=== PATIENT | female | born 1955 | race Caucasian/White ===

== ENCOUNTER 2021-01-22 06:28 | Day surgery (SDC) | payer MEDICARE ==
[2021-01-20 12:28] VITALS: BMI 30.9
[~2021-01-22 06:28] MED LIST: LACTATED RINGERS 1,000 ML IV SCH
[2021-01-22] MEDS ORDERED: LIDOCAINE 1% (10MG/ML) FOR IV START INTRADERMA ONE (07:04)
[2021-01-22 07:05] VITALS: TEMP 97.5
[2021-01-22 07:07] LABS: Glucose,Whole Blood 115 mg/dL (75-99)
[2021-01-22] MEDS ORDERED: PROPOFOL 10 MG/ML 20 ML VIAL IV ONE (07:17)
--- NOTE | 2021-01-22 07:34 | P.PCN ---
Date of Procedure: 01/22/21 Procedure(s) Performed: BRIEF HISTORY: Patient is a 65-year-old pleasant white female scheduled for an elective colonoscopy as a part of screening for colon cancer PROCEDURE PERFORMED: Colonoscopy. PREOPERATIVE DIAGNOSIS: Screening for colon cancer. IV sedation per Anesthesia. PROCEDURE: After informed consent was obtained, the patient, was brought into the endoscopy unit. IV sedation was administered by Anesthesia under continuous monitoring. Digital rectal examination was normal. Initially the Olympus CF-160 flexible video colonoscope was then inserted in the rectum, gradually advanced into the cecum without any difficulty. Careful examination was performed as the scope was gradually being withdrawn. Ileocecal valve and the appendiceal orifice were visualized and appeared normal. Prep was excellent. Mucosa of the cecum, ascending colon, transverse colon, descending colon, sigmoid colon, and rectum appeared normal. Retroflexion was performed in the rectum and no lesions were seen. The patient tolerated the procedure well. IMPRESSION: Normal-appearing colon from rectum to cecum no evidence of colorectal neoplasia . RECOMMENDATIONS: Findings of this examination were discussed with the patient as well as a family. She was advised to have a repeat screening colonoscopy in 10 years..
[2021-01-22 07:38] VITALS: RESP 16
[2021-01-22 07:56] VITALS: BP 140/88; PULSE 67
== END 2021-01-22 08:18 | disposition home or self-care (01) ==
LOC: ORWHC2ENDO 06:28
PROVIDERS: ATTEND Internal Medicine Gastroenterology
DX: Z12.11 Encounter for screening for malignant neoplasm of colon (principal); E78.5 Hyperlipidemia, unspecified; E11.9 Type 2 diabetes mellitus without complications; F17.210 Nicotine dependence, cigarettes, uncomplicated; Z79.84 Long term (current) use of oral hypoglycemic drugs; Z79.899 Other long term (current) drug therapy
CPT/HCPCS: J2704; G0121

== ENCOUNTER → 2023-07-19 | Outpatient (CLI) | payer MEDICARE ==
--- NOTE | 2023-07-19 19:40 | XR ---
EXAMINATION TYPE: XR abdomen 2V DATE OF EXAM: 07/19/2023 COMPARISON: None INDICATION: Left lower quadrant pain TECHNIQUE: Single view abdomen supine and upright views FINDINGS: Normal bowel gas is present. No mass effect is evident. Psoas margins are normal. No organomegaly is present. No free air is evident. No suspicious differential air-fluid levels are evident. IMPRESSION: 1. Unremarkable Abdomen
== END | disposition home or self-care (01) ==
LOC: RADXRMAIN 15:43
PROVIDERS: ATTEND Nurse Practitioner Family
DX: R10.32 Left lower quadrant pain (principal)
CPT/HCPCS: 74019

== ENCOUNTER 2023-09-10 10:08 | Emergency (ER) | payer MEDICARE ==
[2023-09-10 10:12] VITALS: TEMP 97.2
[2023-09-10] MEDS: SODIUM CHLORIDE 0.9% 1,000 ML IV STA (10:58)
[2023-09-10 11:05] LABS: Basophils # (A) 0.1 k/uL (0-0.2); Basophils % (A) 1 %; Eosinophils # (A) 0.2 k/uL (0-0.7); Eosinophils % (A) 2 %; HCT 45.1 % (34.0-46.0); HGB 14.6 gm/dL (11.4-16.0); Lymphocytes # (A) 2.4 k/uL (1.0-4.8); Lymphocytes % (A) 22 %; MCH 28.1 pg (25.0-35.0); MCHC 32.3 g/dL (31.0-37.0); Mean Platelet Volume 8.2; Monocytes # (A) 0.6 k/uL (0-1.0); Monocytes % (A) 5 %; Neutrophils # (A) 7.8 k/uL (1.3-7.7); Neutrophils % (A) 69 %; Platelet Count 264 k/uL (150-450); RBC 5.19 m/uL (3.80-5.40); RDW 13.7 % (11.5-15.5); WBC 11.2 k/uL (3.8-10.6)
[2023-09-10 11:10] LABS: Appearance,Urine Clear (Clear); Bacteria,Urine Rare /hpf; Bilirubin,Urine Negative (Negative); Blood,Urine Trace (Negative); Color,Urine Colorless; Glucose,Urine (UA) 4+ (Negative); Ketones,Urine Negative (Negative); Leukocyte Esterase,Urine Negative (Negative); Nitrite,Urine Negative (Negative); PH, Urine 6.5 (5.0-8.0); Protein,Urine Negative (Negative); RBC,Urine 1 /hpf (0-5); Squamous Epithelial Cell,Urine 1 /hpf (0-4); Urobilinogen,Urine <2.0 mg/dL (<2.0); WBC,Urine 1 /hpf (0-5)
[2023-09-10 11:39] LABS: ALT 19 U/L (4-34); African American GFR (CKD) >90 (>60 ml/min/1.73 sqM); Albumin 4.3 g/dL (3.5-5.0); Anion Gap 5 mmol/L; Blood Urea Nitrogen 17 mg/dL (7-17); Calcium 9.6 mg/dL (8.4-10.2); Carbon Dioxide 27 mmol/L (22-30); Chloride 106 mmol/L (98-107); Glucose 121 mg/dL (74-99); Lipase 35 U/L (23-300); Non-African American GFR(CKD) >90 (>60 ml/min/1.73 sqM); Sodium 138 mmol/L (137-145); Total Bilirubin 0.7 mg/dL (0.2-1.3)
[2023-09-10 11:52] LABS: AST 33 U/L (14-36); Alkaline Phosphatase 65 U/L (38-126); Potassium 4.6 mmol/L (3.5-5.1)
--- NOTE | 2023-09-10 11:52 | ED ---
Back Pain HPI - General Chief Complaint: Back Pain/Injury Stated Complaint: Backside pain Time Seen by Provider: 09/10/23 10:25 Source: patient, RN notes reviewed Limitations: no limitations - History of Present Illness Initial Comments: 67-year-old female presents emergency fronting with left-sided pain. Patient states she has had abdominal pain never resolves getting getting worse. Patient did initially see PCP when this started an x-ray which showed no acute process. Patient states that she was having diarrhea but they thought this was from her metformin she has been switched to Jardiance. Patient denies any fevers or chills no chest pain no dysuria no rectal bleeding. - Related Data Home Medications Medication Instructions Recorded Confirmed Atorvastatin [Lipitor] 20 mg PO HS 01/20/21 01/20/21 Desmopressin Intranasal [Ddavp 10 mcg NASAL DAILY PRN 01/20/21 01/20/21 Nasal Theresa] metFORMIN HCL [Glucophage] 500 mg PO BID 01/20/21 01/20/21 Previous Rx's Medication Instructions Recorded Cyclobenzaprine [Flexeril] 10 mg PO TID PRN #15 tab 09/10/23 Ketorolac [Toradol] 10 mg PO Q8HR #15 tab 09/10/23 Allergies Allergy/AdvReac Type Severity Reaction Status Date / Time No Known Allergies Allergy Verified 01/20/21 12:23 Review of Systems ROS Statement: Those systems with pertinent positive or pertinent negative responses have been documented in the HPI. ROS Other: All systems not noted in ROS Statement are negative. 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 History of Any Multi-Drug Resistant Organisms: None Reported Past Surgical History: Appendectomy Additional Past Surgical History / Comment(s): COLONOSCOPY Past Anesthesia/Blood Transfusion Reactions: No Reported Reaction Past Psychological History: No Psychological Hx Reported Smoking Status: Current every day smoker Past Alcohol Use History: None Reported Past Drug Use History: None Reported - Past Family History Mother Family Medical History: No Reported History General Exam Limitations: no limitations General appearance: alert, in no apparent distress Head exam: Present: atraumatic, normocephalic, normal inspection Eye exam: Present: normal appearance, PERRL, EOMI. Absent: scleral icterus, conjunctival injection, periorbital swelling ENT exam: Present: normal exam, mucous membranes moist Neck exam: Present: normal inspection, full ROM. Absent: tenderness, meningismus, lymphadenopathy Respiratory exam: Present: normal lung sounds bilaterally. Absent: respiratory distress, wheezes, rales, rhonchi, stridor Cardiovascular Exam: Present: regular rate, normal rhythm, normal heart sounds. Absent: systolic murmur, diastolic murmur, rubs, gallop, clicks GI/Abdominal exam: Present: soft, tenderness, normal bowel sounds. Absent: distended, guarding, rebound, rigid Course Vital Signs 09/10/23 09/10/23 10:09 13:16 Temperature 97.2 F L Pulse Rate 101 H 79 Respiratory 18 16 Rate Blood Pressure 175/87 152/88 O2 Sat by Pulse 94 L 97 Oximetry Medical Decision Making - Medical Decision Making Was pt. sent in by a medical professional or institution (, PA, INTERLOCKING INSTALLER, urgent care, hospital, or [place] health care facility...) When possible be specific @ -No Did you speak to anyone other than the patient for history (EMS, parent, family, police, friend...)? What history was obtained from this source @ -No Did you review nursing and triage notes (agree or disagree)? Why? @ -I reviewed and agree with nursing and triage notes Were old charts reviewed (outside hosp., previous admission, EMS record, old EKG, old radiological studies, urgent care reports/EKG's, [place] health care facility records)? Report findings @ -Reviewed outpatient abdominal x-ray showed no acute process Differential Diagnosis (chest pain, altered mental status, abdominal pain women, abdominal pain men, vaginal bleeding, weakness, fever, dyspnea, syncope, headache, dizziness, GI bleed, back pain, seizure, CVA, palpatations, mental health, musculoskeletal)? @ -Differential Abdominal Pain Women: Appendicitis, Cholecystitis, diverticulosis, ischemic bowel, pancreatitis, hepatitis, UTI, gastroenteritis, AAA, incarcerated hernia, bowel obstruction, constipation, inflammatory bowel, hepatitis, peptic ulcer disease, splenic infarction, perforated viscus, vulvitis, ovarian torsion, PID, kidney stone, placenta abruption, this is not meant to be an all-inclusive list EKG interpreted by me (3pts min.). @ -[None X-rays interpreted by me (1pt min.). @ -None done CT interpreted by me (1pt min.). @ -CT abdomen pelvis showing left-sided nephrolithiasis, no other acute intra- abdominal process U/S interpreted by me (1pt. min.). @ -None done What testing was considered but not performed or refused? (CT, X-rays, U/S, labs)? Why? @ -None What meds were considered but not given or refused? Why? @ -None Did you discuss the management of the patient with other professionals (professionals i.e. DrYovany, PA, INTERLOCKING INSTALLER, lab, RT, psych nurse, hospice social worker, commercial review appraiser, teacher, chief science officer, returned case inspector)? Give summary @ -No Was smoking cessation discussed for >3mins.? @ -No Was critical care preformed (if so, how long)? @ -No Were there social determinants of health that impacted care today? How? (Homelessness, low income, unemployed, alcoholism, drug addiction, transportation, low edu. Level, literacy, decrease access to med. care, shelter, rehab)? @ -No Was there de-escalation of care discussed even if they declined (Discuss DNR or withdrawal of care, Hospice)? DNR status @ -No What co-morbidities impacted this encounter? (DM, HTN, Smoking, COPD, CAD, Cancer, CVA, ARF, Chemo, Hep., AIDS, mental health diagnosis, sleep apnea, morbid obesity)? @ -None Was patient admitted / discharged? Hospital course, mention meds given and route, prescriptions, significant lab abnormalities, going to OR and other pertinent info. @ -Discharge patient presented for left-sided flank pain, abdominal pain. Patient's workup does not reveal any acute findings patient does have left-sided nephrolithiasis but nonobstructing felt less likely because the pain is being musculoskeletal in nature she is advised to follow-up with Dr. Michael as she seen in the past for colonoscopy. Patient discharged with analgesics return. Discussed Undiagnosed new problem with uncertain prognosis? @ -No Drug Therapy requiring intensive monitoring for toxicity (Heparin, Nitro, Insul in, Cardizem)? @ -No Were any procedures done? @ -No Diagnosis/symptom? @ -Left flank pain, abdominal pain Acute, or Chronic, or Acute on Chronic? @ -Acute Uncomplicated (without systemic symptoms) or Complicated (systemic symptoms)? @ -Uncomplicated Side effects of treatment? @ -No Exacerbation, Progression, or Severe Exacerbation? @ -No Poses a threat to life or bodily function? How? (Chest pain, USA, DE, pneumonia, PE, COPD, DKA, ARF, appy, cholecystitis, CVA, Diverticulitis, Homicidal, Suici sofiya, threat to staff... and all critical care pts) @ -No - Lab Data Result diagrams: 09/10/23 10:47 09/10/23 10:47 Lab Results 09/10/23 09/10/23 09/10/23 Range/Units 10:47 10:47 10:47 WBC 11.2 H (3.8-10.6) k/uL RBC 5.19 (3.80-5.40) m/uL Hgb 14.6 (11.4-16.0) gm/dL Hct 45.1 (34.0-46.0) % MCV 87.0 (80.0-100.0) fL MCH 28.1 (25.0-35.0) pg MCHC 32.3 (31.0-37.0) g/dL RDW 13.7 (11.5-15.5) % Plt Count 264 (150-450) k/uL MPV 8.2 Neutrophils % 69 % Lymphocytes % 22 % Monocytes % 5 % Eosinophils % 2 % Basophils % 1 % Neutrophils # 7.8 H (1.3-7.7) k/uL Lymphocytes # 2.4 (1.0-4.8) k/uL Monocytes # 0.6 (0-1.0) k/uL Eosinophils # 0.2 (0-0.7) k/uL Basophils # 0.1 (0-0.2) k/uL Sodium 138 (137-145) mmol/L Potassium 4.6 (3.5-5.1) mmol/L Chloride 106 (98-107) mmol/L Carbon Dioxide 27 (22-30) mmol/L Anion Gap 5 mmol/L BUN 17 (7-17) mg/dL Creatinine 0.65 (0.52-1.04) mg/dL Est GFR (CKD-EPI)AfAm >90 (>60 ml/min/1.73 sqM) Est GFR (CKD-EPI)NonAf >90 (>60 ml/min/1.73 sqM) Glucose 121 H (74-99) mg/dL Plasma Lactic Acid Nasir (0.7-2.0) mmol/L Calcium 9.6 (8.4-10.2) mg/dL Total Bilirubin 0.7 (0.2-1.3) mg/dL AST 33 (14-36) U/L ALT 19 (4-34) U/L Alkaline Phosphatase 65 (38-126) U/L Total Protein 7.0 (6.3-8.2) g/dL Albumin 4.3 (3.5-5.0) g/dL Lipase 35 (23-300) U/L Urine Color Colorless Urine Appearance Clear (Clear) Urine pH 6.5 (5.0-8.0) Ur Specific [place] 1.010 (1.001-1.035) Urine Protein Negative (Negative) Urine Glucose (UA) 4+ H (Negative) Urine Ketones Negative (Negative) Urine Blood Trace H (Negative) Urine Nitrite Negative (Negative) Urine Bilirubin Negative (Negative) Urine Urobilinogen <2.0 (<2.0) mg/dL Ur Leukocyte Esterase Negative (Negative) Urine RBC 1 (0-5) /hpf Urine WBC 1 (0-5) /hpf Ur Squamous Epith Cells 1 (0-4) /hpf Urine Bacteria Rare H (None) /hpf 09/10/23 Range/Units 10:47 WBC (3.8-10.6) k/uL RBC (3.80-5.40) m/uL Hgb (11.4-16.0) gm/dL Hct (34.0-46.0) % MCV (80.0-100.0) fL MCH (25.0-35.0) pg MCHC (31.0-37.0) g/dL RDW (11.5-15.5) % Plt Count (150-450) k/uL MPV Neutrophils % % Lymphocytes % % Monocytes % % Eosinophils % % Basophils % % Neutrophils # (1.3-7.7) k/uL Lymphocytes # (1.0-4.8) k/uL Monocytes # (0-1.0) k/uL Eosinophils # (0-0.7) k/uL Basophils # (0-0.2) k/uL Sodium (137-145) mmol/L Potassium (3.5-5.1) mmol/L Chloride (98-107) mmol/L Carbon Dioxide (22-30) mmol/L Anion Gap mmol/L BUN (7-17) mg/dL Creatinine (0.52-1.04) mg/dL Est GFR (CKD-EPI)AfAm (>60 ml/min/1.73 sqM) Est GFR (CKD-EPI)NonAf (>60 ml/min/1.73 sqM) Glucose (74-99) mg/dL Plasma Lactic Acid Nasir 0.8 (0.7-2.0) mmol/L Calcium (8.4-10.2) mg/dL Total Bilirubin (0.2-1.3) mg/dL AST (14-36) U/L ALT (4-34) U/L Alkaline Phosphatase (38-126) U/L Total Protein (6.3-8.2) g/dL Albumin (3.5-5.0) g/dL Lipase (23-300) U/L Urine Color Urine Appearance (Clear) Urine pH (5.0-8.0) Ur Specific [place] (1.001-1.035) Urine Protein (Negative) Urine Glucose (UA) (Negative) Urine Ketones (Negative) Urine Blood (Negative) Urine Nitrite (Negative) Urine Bilirubin (Negative) Urine Urobilinogen (<2.0) mg/dL Ur Leukocyte Esterase (Negative) Urine RBC (0-5) /hpf Urine WBC (0-5) /hpf Ur Squamous Epith Cells (0-4) /hpf Urine Bacteria (None) /hpf Disposition Clinical Impression: Left flank pain Disposition: HOME SELF-CARE Condition: Stable Instructions (If sedation given, give patient instructions): Flank Pain (ED) Additional Instructions: Please return to the Emergency Department if symptoms worsen or any other concerns. Prescriptions: Cyclobenzaprine [Flexeril] 10 mg PO TID PRN #15 tab PRN Reason: Muscle Spasm Ketorolac [Toradol] 10 mg PO Q8HR #15 tab Is patient prescribed a controlled substance at d/c from ED?: No Referrals: Kvng Truong DO [Primary Care Provider] - 1-2 days Time of Disposition: 12:45
--- NOTE | 2023-09-10 12:36 | CT ---
EXAMINATION TYPE: CT abdomen pelvis w con CT DLP: 1108 mGycm, Automated exposure control for dose reduction was used. DATE OF EXAM: 09/10/2023 12:30 PM COMPARISON: None CLINICAL INDICATION:Female, 67 years old with history of left side pain; LT side abdominal pain TECHNIQUE: Axial CT abdomen pelvis w con;Sagittal and coronal reformats were created on a separate w orkstation. Contrast used:100 mL of Isovue 300 with IV Contrast, (none if empty) Oral contrast used: without Oral Contrast (none if empty) FINDINGS: LOWER CHEST: Unremarkable ABDOMEN LIVER: Unremarkable GALLBLADDER AND BILE DUCTS: Unremarkable. PANCREAS: Unremarkable. SPLEEN: Unremarkable. ADRENAL GLANDS: Adenomatous hypertrophy changes of the adrenal glands left greater than right. KIDNEYS AND URETERS: Nonobstructing 8 mm renal calculus. No hydronephrosis or ureteral calculus ident ified. No right renal calculi or hydronephrosis. PELVIS BLADDER: Unremarkable REPRODUCTIVE: Unremarkable. ABDOMEN & PELVIS STOMACH AND BOWEL: No evidence of bowel obstruction. The appendix is not visualized. PERITONEUM/RETROPERITONEUM: No evidence of pneumoperitoneum or free fluid. VASCULATURE: Mild atherosclerotic calcifications are present throughout the abdominal aorta and its b ranches. No evidence of aortic aneurysm. MUSCULOSKELETAL: No acute osseous abnormalities. Mild disc degeneration changes are present throughou t the thoracolumbar spine. LYMPH NODES: No gross evidence for lymphadenopathy. SOFT TISSUE/ABDOMINAL WALL: Unremarkable IMPRESSION: 1. No evidence for left-sided abdominal process to explain the patient's pain. 2. Left nonobstructing renal calculus.
[2023-09-10 13:18] VITALS: BP 152/88; PULSE 79; RESP 16
== END 2023-09-10 13:18 | disposition home or self-care (01) ==
LOC: EC 10:08
DX: N20.0 Calculus of kidney (principal); F17.200 Nicotine dependence, unspecified, uncomplicated
CPT/HCPCS: 36415; 80053; 83605; 83690; 85025; 81001; 74177; 99284; 96360; 96361; Q9967

== ENCOUNTER 2023-10-26 09:10 | Day surgery (SDC) | payer MEDICARE ==
--- NOTE | 2023-10-25 20:00 | P.GSHP ---
History of Present Illness H&P Date: 10/25/23 Chief Complaint: Left flank pain Patient is a 68-year-old white female with no prior history of urolithiasis. She has experienced left flank pain since March. Her pain has been severe on [address] scan has shown an 8 mm left renal calculus, with no evidence of hydronephrosis. - Constitutional Constitutional: Denies chills, Denies fever - Gastrointestinal Gastrointestinal: Denies nausea, Denies vomiting - Genitourinary (Female) Genitourinary: Reports flank pain, Reports kidney stones, Denies dysuria, Denies hematuria Past Medical History Past Medical History: Blood Disorder, COPD, Diabetes Mellitus, Hyperlipidemia Additional Past Medical History / Comment(s): FACTOR VIII BLOOD DISORDER, kidney stones, finishing z-rajani for resolving cough History of Any Multi-Drug Resistant Organisms: None Reported Past Surgical History: Appendectomy, Section Additional Past Surgical History / Comment(s): COLONOSCOPY, ovarian cyst removed Past Anesthesia/Blood Transfusion Reactions: No Reported Reaction Additional Past Anesthesia/Blood Transfusion Reaction / Comment(s): had problems w/bleeding after vag. births & C/S-had to be readmitted because of bleeding- hadn't been diagnosed yet w/hemophilia, no surgeries since, no problems w/transfusions in past Smoking Status: Current every day smoker - Past Family History Mother Family Medical History: No Reported History Father Family Medical History: Blood Disorder Additional Family Medical History / Comment(s): hemophilia Medications and Allergies Home Medications Medication Instructions Recorded Confirmed Type Atorvastatin [Lipitor] 20 mg PO HS 01/20/21 10/25/23 History Desmopressin Intranasal [Ddavp 10 mcg NASAL DIRECTED 01/20/21 10/25/23 History Nasal [place]] Cyclobenzaprine [Flexeril] 10 mg PO TID PRN #15 tab 09/10/23 10/25/23 Rx Azithromycin [Zithromax Z Pack] 1 tab PO DIRECTED 10/25/23 10/25/23 History Empagliflozin [Jardiance] 10 mg PO DAILY 10/25/23 10/25/23 History Ibuprofen [Motrin] 600 mg PO Q8HR PRN 10/25/23 10/25/23 History Umeclidinium Brm/Vilanterol Tr 1 puff INHALATION DAILY PRN 10/25/23 10/25/23 History [Anoro Ellipta 62.5-25 Mcg INH] Allergies Allergy/AdvReac Type Severity Reaction Status Date / Time No Known Allergies Allergy Verified 10/25/23 12:44 Surgical - Exam - General well developed, well nourished, no distress - Respiratory normal respiratory effort - Psychiatric oriented to time, oriented to person, oriented to place, speech is normal, memory intact Results - Imaging CT scan - abdomen: report reviewed, image reviewed Assessment and Plan (1) Calculus of kidney Status: Acute Code(s): N20.0 - CALCULUS OF KIDNEY SNOMED Code(s): 14064249 Plan: The patient was offered the options of observation, extracorporal shockwave lithotripsy (ESWL), and ureteroscopy with laser lithotripsy and stent placement. The pros, cons, and risks of each approach were reviewed in detail. She has elected to undergo ureteroscopic removal of the calculus. She is aware of potential risks, which include anesthesia, bleeding, infection, inability to remove the calculus, and ureteral injury.
[~2023-10-26 09:10] MED LIST changes: +HYDROmorphone 0.5 MG/0.5 ML SYRINGE IVP PRN; -LACTATED RINGERS 1,000 ML IV SCH
[2023-10-26 10:03] LABS: Glucose,Whole Blood 140 mg/dL (70-110)
[2023-10-26] MEDS: LACTATED RINGERS 1,000 ML IV SCH (10:04)
[2023-10-26] MEDS: IV FLUID CONTINUATION 1,000 ML IV ONE (10:04)
[2023-10-26] MEDS: DEXAMETHASONE SOD PHOSPHATE 4 MG/ML 1 ML VIAL IV ONE (10:06)
[2023-10-26] MEDS: ONDANSETRON 4 MG/2 ML VIAL IVP ONE (10:07)
--- NOTE | 2023-10-26 10:55 | XR ---
EXAMINATION TYPE: XR KUB DATE OF EXAM: 10/26/2023 Comparison: None Clinical History: 68-year-old female N20.0 CALCULUS OF KIDNEY, PRESURGERY Findings: 9 mm calcification projecting at the upper pole left kidney. Nonobstructive bowel gas pattern. A coup le tiny pelvic platelets. Severe degenerative disc disease lower lumbar spine. Minimal scattered stoo l. Impression: Suspected 9 mm left renal stone. Nonobstructive bowel gas pattern.
[2023-10-26] MEDS ORDERED: PROPOFOL 10 MG/ML 20 ML VIAL IV ONE (11:25)
[2023-10-26] MEDS ORDERED: LIDOCAINE 1% INJ 10MG/ML (20 ML MDV) ONE (11:25)
[2023-10-26] MEDS ORDERED: fentaNYL (PF) 50 MCG/ML 2 ML AMP ONE (11:25)
[2023-10-26] MEDS ORDERED: ROCURONIUM 10 MG/ML (5 ML VIAL) IV ONE (11:25)
[2023-10-26] MEDS ORDERED: PHENYLEPHRINE-0.9% NACL SYG 1,000 MCG/10 ML SYRINGE ONE (11:25)
[2023-10-26] MEDS ORDERED: NEOSTIGMINE 1 MG/ML 10 ML VIAL ONE (11:25)
[2023-10-26] MEDS ORDERED: SUCCINYLCHOLINE CHLORIDE 200 MG/10 ML VIAL IV ONE (11:25)
[2023-10-26] MEDS ORDERED: MIDAZOLAM 2 MG/2 ML VIAL ONE (11:25)
[2023-10-26] MEDS ORDERED: GLYCOPYRROLATE 0.2 MG/ML 2 ML VIAL ONE (11:25)
[2023-10-26] MEDS: IOPAMIDOL-370 100ML BTL MISCELLANE ONE (12:51)
[2023-10-26] MEDS: LACTATED RINGERS 1,000 ML IV ONE (13:20)
[2023-10-26 13:51] VITALS: TEMP 97
--- NOTE | 2023-10-26 13:57 | P.OP ---
Date of Procedure: 10/26/23 Preoperative Diagnosis: Left renal calculus Postoperative Diagnosis: Same Procedure(s) Performed: Cystoscopy, left retrograde pyelogram, left ureteroscopy with Holmium laser lithotripsy and stone basketing, left ureteral stent insertion Anesthesia: LAI Surgeon: Hilario Gonsales Estimated Blood Loss (ml): 10 IV fluids (ml): 900 Pathology: other (Left renal calculus fragments, sent for chemical analysis) Condition: stable Disposition: PACU Indications for Procedure: Patient is a 68-year-old white female with no prior history of urolithiasis. She has experienced left flank pain since March. Her pain has been severe on [address] scan has shown an 8 mm left renal calculus, with no evidence of hydronephrosis. Treatment options were reviewed, and she has elected to undergo ureteroscopic removal of the renal calculus. Operative Findings: Calculus located within a left upper pole calyx, submucosal. Description of Procedure: The patient was taken to the operating room and placed in the dorsolithotomy position, with legs supported in Vasyl stirrups. The external genitalia was prepped and draped sterilely. The 30 lens was used to introduce the 21-Citizen Of [place] Baum cystoscopic sheath through the urethra and into the bladder under direct vision. The bladder was examined in its entirety. Both ureteral orifices were normal anatomic location and configuration, and clear urine effluxed from both. No tumors or foreign bodies were seen. A 0.038 inch Glidewire was passed through the cystoscope. The left ureteral orifice was cannulated, and the Glidewire was advanced up to the renal pelvis. The cystoscope was removed, and an 11/13-Citizen [place] ureteral access catheter was passed over the wire, up to the proximal ureter. The Baum [employer]ments[employer] flexible ureteroscope was then passed through the ureteral access catheter sheath and up to the left renal pelvis under direct vision. The calculus was identified within an upper pole calyx, covered almost entirely by mucosa. No calculi were seen in the other calyces. The 272 micron Holmium laser probe was passed through the ureteroscope, and lithotripsy was performed. The mucosa was incised to gain better exposure to the calculus, which was fragmented well utilizing a dusting mode. Several fragments broke away and were removed using a 0 tip 1.9 Citizen [place] nitinol basket. As this was done, the ureteral access catheter migrated distally somewhat and a ureteral perforation was identified. The ureteroscope was once again passed up to the left renal pelvis, and any remaining fragments were treated with a combination of dusting/popcorning, leaving no residual calculus fragments exceeding the size of the laser fiber tip. The Glidewire was passed through the ureteroscope, which was withdrawn along with the ureteral access catheter sheath. The proximal end of the stent failed to curl as desired, and therefore it was removed and the Glidewire was passed up to the renal pelvis to reposition the stent. Ultimately, ureteroscopy was repeated as the flexible ureteroscope was advanced up to the left renal pelvis. Contrast was injected to delineate the anatomy of the renal pelvis, and the Glidewire was passed through the ureteroscope, which was withdrawn. The Glidewire was backloaded into the cystoscope, which was passed into the bladder. A 24 cm, 6 Citizen [place] double-J ureteral stent was placed over the wire. Proper stent positioning was verified fluoroscopically and endoscopically. The bladder was emptied and the cystoscope removed. The patient tolerated the procedure well and was taken to the recovery room in stable condition. [facility] [place] Report: Procedure Acuity: Elective Stone Size and Location: 8 mm, left upper pole Ureteral Dilation: No Ureteral Access Sheath Used: Yes Stone Sent for Analysis: Yes All Stones/Fragments Were Removed with a Basket: Yes Complications: No Preoperative Antibiotics Given: Yes Stent Placed: Yes If Stent Placed, Was String Left Attached: No If Stent Placed, When is it to be Removed: 1 month Discharge Medications: Tamsulosin, trospium, ciprofloxacin
[2023-10-26] MEDS: TAMSULOSIN 0.4 MG CAP.ER.24H PO STA (14:56)
[2023-10-26] MEDS: ACETAMINOPHEN TAB 500 MG TAB PO STA (15:03)
[2023-10-26 16:36] VITALS: BP 139/75; PULSE 94; RESP 20
--- NOTE | 2023-11-23 10:35 | FL ---
EXAMINATION TYPE: FL urography retrograde DATE OF EXAM: 10/26/2023 1:29 PM COMPARISON: Pre Operative Images if available both CT/MRI or plain film CLINICAL INDICATION: Female, 68 years old with history of CYSTO LITHO LEFT RENAL CALCULUS; TECHNIQUE: FL urography retrograde, multiple fluoroscopic images provided for procedure. Total fluoroscopy time: 2.01 min Total submitted images to PACS: 8 DAP: 1.75 mGym2 Gycm2 uGym2 cGycm2 or equivalent. FINDINGS: Fluoroscopic images from left renal collecting system access demonstrate extravasation of contrast ou tside the collecting system. Ureteral stent properly placed in the left renal collecting system IMPRESSION: 1. Left ureteral stent placement with evidence of extravasation of contrast. 2. Please see the operative/procedural note for further details. [facility], , 11/23/2023 10:33 AM
== END 2023-10-26 16:25 | disposition home or self-care (01) ==
LOC: OR 09:10
PROVIDERS: ATTEND Urology
DX: N20.0 Calculus of kidney (principal); D66 Hereditary factor VIII deficiency; E11.9 Type 2 diabetes mellitus without complications; E78.5 Hyperlipidemia, unspecified; J44.9 Chronic obstructive pulmonary disease, unspecified; F17.200 Nicotine dependence, unspecified, uncomplicated; Z79.84 Long term (current) use of oral hypoglycemic drugs; Z90.49 Acquired absence of other specified parts of digestive tract; Z79.899 Other long term (current) drug therapy
CPT/HCPCS: 74018; 74420; 82365

== ENCOUNTER → 2023-12-25 | Outpatient (CLI) | payer MEDICARE ==
--- NOTE | 2023-12-25 14:31 | US ---
EXAMINATION TYPE: US kidneys/renal and bladder DATE OF EXAM: 12/25/2023 COMPARISON: NONE CLINICAL INDICATION: Female, 68 years old with history of N20.0 CALCULUS OF KIDNEY;Hx of stones left kidney had them removed 10/29/2023. TECHNIQUE: Grayscale imaging of the bilateral kidneys and urinary bladder: FINDINGS: EXAM MEASUREMENTS: Right Kidney: 9.9 x 4.0 x 4.3 cm Left Kidney: 10.7 x 4.9 x 4.8 cm Right Kidney: No hydronephrosis or masses seen Left Kidney: Echogenic area lower pole .9 x .8 cm. Bladder: Anechoic Bilateral Jets seen: no There is no evidence for hydronephrosis at this point in time The urinary bladder is anechoic. IMPRESSION: Nonshadowing calculus versus small angiomyolipoma lower pole left kidney. [facility], , 12/25/2023 2:28 PM
== END | disposition home or self-care (01) ==
LOC: RADUSWWP 11:31
PROVIDERS: ATTEND Urology
DX: N20.0 Calculus of kidney (principal); Z87.442 Personal history of urinary calculi
CPT/HCPCS: 76770

== ENCOUNTER → 2024-05-23 | Outpatient (CLI) | payer MEDICARE ==
--- NOTE | 2024-05-23 13:52 | MM ---
Reason for Exam: Screening (asymptomatic). Last mammogram was performed 1 year(s) and 2 month(s) ago. Patient History: Menarche at age 12. First Full-Term at age 22. Postmenopausal. Maternal cousin (1) had breast cancer. Maternal cousin (2) had breast cancer. Maternal cousin (3) had breast cancer. Maternal cousin (4) had breast cancer. Maternal cousin (5) had breast cancer. Maternal cousin (1) had ovarian cancer. Maternal cousin (2) had ovarian cancer. Maternal cousin (3) had ovarian cancer. Maternal cousin (4) had ovarian cancer. Maternal cousin (5) had ovarian cancer. Risk Values: Andree 5 year model risk: 1.5%. NCI Lifetime model risk: 5.0%. Prior Study Comparison: 12/29/2021 Bilateral Screening Mammogram, Unknown. 03/27/2023 Bilateral Screening Mammogram, Unknown. Tissue Density: There are scattered areas of fibroglandular density. Findings: Analyzed By CAD. There is no suspicious group of microcalcifications or new suspicious mass in either breast. Overall Assessment: Benign, BI-RAD 2 Management: Screening Mammogram of both breasts in 1 year. . Patient should continue monthly self-breast exams. A clinical breast exam by your physician is recommended on an annual basis. This exam should not preclude additional follow-up of suspicious palpable abnormalities. Note on Andree scores and lifetime risk: 1. A Andree score greater than 3% is considered moderate risk. If this is the case, consider specialist referral to assess eligibility for a risk reducing agent. 2. If overall lifetime risk for the development of breast cancer is 20% or higher, the patient may qualify for future screening with alternating mammogram and breast MRI. [facility], , 05/23/2024 10:02 AM. Electronically signed and approved by: Mak Mccartney M.D. Radiologis
== END | disposition home or self-care (01) ==
LOC: RADMAMWWP 09:01
PROVIDERS: ATTEND Family Medicine
DX: Z12.31 Encounter for screening mammogram for malignant neoplasm of breast (principal); R92.323 Mammographic fibroglandular density, bilateral breasts; Z78.0 Asymptomatic menopausal state; Z80.3 Family history of malignant neoplasm of breast
CPT/HCPCS: 77063; 77067